=== PATIENT | male | born 1945 | race Caucasian/White ===

== ENCOUNTER 2017-09-14 18:54 | Observation (INO) | payer OTHER ==
--- NOTE | 2017-09-14 19:36 | EDPHY ---
H & P Time Seen by Provider: 09/14/17 19:33 HPI/ROS: CHIEF COMPLAINT: Hiccups, drowsiness HISTORY OF PRESENT ILLNESS: The patient is a 72 y/o male with a history of atrial fibrillation, complaining of hiccups for 8 days. 2 weeks ago he developed an inner ear infection and was prescribed Prednisone. The prednisone was increased when it was initially unsuccessful. After the increase in steroids, he developed the hiccuping episodes. He was prescribed Thorazine, Ativan and Gabapentin for the hiccups, but has been experiencing excessive drowsiness. Yesterday the hiccups occurred for 12 hours from 15:00-03:00am. Prior to arrival he was severely drowsy, which required his to arouse him. He also experienced urinary incontinence while sleeping. This evening, DONNA Burkett, the patient's PCP, advised him to come to the ED due to the excessive drowsiness. When the hiccup episodes occur he has difficulty breathing due to the hiccups, as they occur every other breath. While sleeping, the hiccups stop but immediately start when he wakes up. Took Ativan, Gabapentin, and Thorazine at 15:00. He also tried eating peanut butter to stop the hiccups, which seems to help. He is not currently hiccuping. Denies chest pain, abdominal pain, fever or other pertinent symptoms. REVIEW OF SYSTEMS: Aside from elements discussed in the HPI, a comprehensive 10-point review of systems was reviewed and is negative. Past Medical/Surgical History: Atrial fibrillation Social History: at bedside, lives in [place], retired Smoking Status: Former smoker Physical Exam: General Appearance: Alert, pleasant, no hiccups Eyes: Pupils equal and round, no conjunctival pallor or injection ENT, Mouth: Mucous membranes moist Neck: Normal inspection Respiratory: Lungs are clear to auscultation Cardiovascular: Regular rate and rhythm Gastrointestinal: Abdomen is soft and non-tender Neurological: A&O, nonfocal Skin: Warm and dry, no rash Extremities: Nontender, no pedal edema Psychiatric: Mood and affect normal Constitutional: Initial Vital Signs Temperature (C) 36.4 C 09/14/17 18:56 Heart Rate 71 09/14/17 18:56 Respiratory Rate 18 09/14/17 18:56 Blood Pressure 116/75 09/14/17 18:56 O2 Sat (%) 94 09/14/17 18:56 O2 Delivery Mode Room Air Allergies/Adverse Reactions: No Known Allergies Allergy (Verified 09/14/17 18:55) Home Medications: Medication Instructions Recorded Apixaban [Eliquis] 5 mg PO BID 09/14/17 Digoxin [Lanoxin 125 mcg (RX)] 125 mcg PO DAILY 09/14/17 Ezetimibe/Simvastatin [Vytorin 1 each PO DAILY 09/14/17 10-40 mg Tablet] Herbals/Supplements -Info Only 1 ea PO DAILY 09/14/17 Levothyroxine [Synthroid 137 mcg 137 mcg PO DAILY 09/14/17 (*)] Loratadine [Claritin] 10 mg PO DAILY 09/14/17 Nebivolol HCl [Bystolic] 2.5 mg PO DAILY 09/14/17 Testosterone 30 mg TD DAILY 09/14/17 Venlafaxine HCl [Venlafaxine 37.5 mg PO DAILY 09/14/17 37.5MG (*)] buPROPion [Wellbutrin 100mg (*)] 100 mg PO BID 09/14/17 guaiFENesin [Mucinex 600 MG (*)] 1,200 mg PO BID 09/14/17 Acetaminophen [Tylenol 325mg (*)] 650 mg PO Q4HRS PRN tab 09/16/17 Baclofen [Baclofen 10 mg (*)] 10 mg PO Q6H #30 tab 09/16/17 Benzocaine/Menthol 15/4 [Cepacol 1 ea PO PRN PRN lozenge 09/16/17 Lozenge] Gabapentin [Neurontin 300 MG (*)] 300 mg PO Q6H #120 cap 09/16/17 Ondansetron HCl Pf [Zofran 4 mg 4 mg IVP Q4HRS PRN vial 09/16/17 Inj (*)] Medical Decision Making ED Course/Re-evaluation: The patient is a 72 y/o male with a history of atrial fibrillation, presenting with excessive drowsiness after taking multiple sedative medications for relief of hiccups. He is not currently hiccuping. He is currently alert and physical exam is normal. 1952: Consulted with Nolan THOMPSON, regarding the patient's symptoms. He will admit the pt for observation. Dr. Tomlinson will be the admitting physician. Differential Diagnosis: Altered mental status including but not limited to hypoglycemia, infectious process, electrolyte abnormality, head injury and intoxicants. - Data Points Medications Given: Apixaban (Eliquis) 5 mg PO BID LYN Stop: 03/13/18 20:59 Last Admin: 09/16/17 09:26 Dose: 5 mg Atorvastatin Calcium (Lipitor) 20 mg PO DAILY LYN Stop: 03/14/18 08:59 Last Admin: 09/16/17 09:29 Dose: 20 mg Baclofen (Baclofen) 10 mg PO Q6H LYN Stop: 03/13/18 21:59 Last Admin: 09/16/17 09:26 Dose: 10 mg Benzonatate (Tessalon Pearles) 200 mg PO TID PRN PRN Reason: Cough, Mild Stop: 03/14/18 19:16 Last Admin: 09/16/17 05:01 Dose: 200 mg Bupropion HCl (Wellbutrin) 100 mg PO BID LYN Stop: 03/14/18 08:59 Last Admin: 09/16/17 09:27 Dose: 100 mg Cetirizine HCl (Zyrtec) 10 mg PO DAILY LYN Stop: 03/14/18 08:59 Last Admin: 09/16/17 09:25 Dose: 10 mg Digoxin (Lanoxin) 125 mcg PO DAILY LYN Stop: 03/14/18 08:59 Last Admin: 09/16/17 09:27 Dose: 125 mcg Ezetimibe (Zetia) 10 mg PO DAILY LYN Stop: 03/14/18 08:59 Last Admin: 09/16/17 09:26 Dose: 10 mg Gabapentin (Neurontin) 900 mg PO Q6H LYN Stop: 03/14/18 08:14 Last Admin: 09/16/17 09:25 Dose: 900 mg Guaifenesin (Mucinex) 1,200 mg PO BID LYN Stop: 03/14/18 08:59 Last Admin: 09/16/17 09:25 Dose: 1,200 mg Levothyroxine Sodium (Synthroid) 137 mcg PO DAILY LYN Stop: 03/14/18 08:59 Last Admin: 09/16/17 09:25 Dose: 137 mcg Miscellaneous Medication (Testosterone [Testosterone]) 30 mg TD DAILY LYN Stop: 03/14/18 08:59 Last Admin: 09/16/17 09:30 Dose: Not Given Nebivolol (Bystolic) 2.5 mg PO DAILY LYN Stop: 03/14/18 08:59 Last Admin: 09/16/17 09:26 Dose: 2.5 mg Pantoprazole Sodium (Protonix) 40 mg PO DAILY LYN Stop: 03/14/18 08:59 Last Admin: 09/16/17 09:28 Dose: 40 mg Sodium Chloride ([place]) 1 spray EACHNARE PRN PRN PRN Reason: Dry Nose Stop: 03/14/18 19:16 Last Admin: 09/15/17 20:25 Dose: 1 spray Throat Lozenges (Cepacol Lozenge) 1 ea PO PRN PRN PRN Reason: Sore Throat Stop: 03/14/18 19:16 Last Admin: 09/16/17 05:02 Dose: 1 ea Venlafaxine HCl (Venlafaxine Hcl) 37.5 mg PO DAILY LYN Stop: 03/14/18 08:59 Last Admin: 09/16/17 09:27 Dose: 37.5 mg Discontinued Medications Gabapentin (Neurontin) 300 mg PO Q6H LYN Stop: 03/13/18 21:59 Last Admin: 09/15/17 06:36 Dose: 300 mg Sodium Chloride (Ns) 1,000 mls @ 0 mls/hr IV EDNOW ONE; Wide Open PRN Reason: Protocol Stop: 09/14/17 19:54 Last Admin: 09/14/17 20:18 Dose: 1,000 mls Departure - Departure Disposition: [facility] Acute Clinical Impression: Hiccups Altered mental status Qualifiers: Altered mental status type: somnolence Qualified Code(s): R40.0 - Somnolence Condition: Fair Report Scribed for: Joann Dominguez Report Scribed by: Yeni Retana Date of Report: 09/14/17 Time of Report: 19:36
[2017-09-14] MEDS ORDERED: NS 1,000 ML IV ONE (19:53)
[2017-09-14] MEDS ORDERED: ONDANSETRON 4 MG/2 ML VIAL IVP PRN (20:17)
[2017-09-14] MEDS ORDERED: ACETAMINOPHEN 325 MG TAB PO PRN (20:17)
[2017-09-14] MEDS ORDERED: LORazepam 0.5 MG TAB PO PRN (20:17)
[2017-09-14] MEDS ORDERED: ONDANSETRON DISINTEGRATING 4 MG TAB PO PRN (20:17)
[2017-09-14] MEDS ORDERED: chlorproMAZINE HCL 25 MG TAB PO PRN (20:22)
--- NOTE | 2017-09-14 20:26 | SOAPPROG ---
SOAP Progress Note Assessment/Plan: Assessment: Plan: 09/14/17 20:25 intractable hiccups, admit, fluids, scheduled gabapentin and baclofen. Will prn low dose Thorazine and lorazepam a fib--rate controlled Eliquis Subjective: 72 yr old male with intractable hiccups. Unsafe to be managed at home. Meds too sedating and ambulation is quite precarious. He his much more alert in ER. Objective: Vital Signs Temp Pulse Resp BP Pulse Ox 36.4 C 71 18 116/75 94 09/14/17 18:56 09/14/17 18:56 09/14/17 18:56 09/14/17 18:56 09/14/17 18:56 Gen: NAD, pleasant, mildly tired Lungs: CTAB Heart: rate controlled irreg irreg Abd soft NT, ND no masses, decreased BS LE's no edema earlier in the day--very tired/sedated, difficulty with walking ICD10 Worksheet Patient Problems: Problems Problem Status Onset Altered mental status Acute Hiccups Acute
[2017-09-14 20:42] LABS: % IMMATURE GRANULYOCYTES 0.5 % (0.0-1.1); ABSOLUTE IMMATURE GRANULOCYTES 0.07 10^3/uL (0.00-0.10); ADD DIFF? NO; ADD MORPH? NO; ADD SCAN? NO; ATYPICAL LYMPHOCYTE FLAG 0 (0-99); FRAGMENT RBC FLAG 0 (0-99); HEMATOCRIT 43.2 % (40.0-51.0); HEMOGLOBIN 15.9 g/dL (13.7-17.5); LEFT SHIFT FLG 10 (0-99); LIPEMIA HEMOLYSIS FLAG 90 (0-99); MEAN CELL HEMOGLOBIN 36.9 pg (27.9-34.1); MEAN CELL HEMOGLOBIN CONCENTR. 36.8 g/dL (32.4-36.7); MEAN CELL VOLUME 100.2 fL (81.5-99.8); MEAN PLATELET VOLUME 9.1 fL (8.7-11.7); PLATELET CLUMPS FLAG 0 (0-99); PLATELET COUNT 163 10^3/uL (150-400); RED BLOOD CELL COUNT 4.31 10^6/uL (4.40-6.38); RED CELL DISTRIBUTION WIDTH 11.8 % (11.5-15.2)
[2017-09-14 20:43] LABS: ANION GAP 8 mEq/L (8-16); CALCIUM 8.1 mg/dL (8.5-10.4); CARBON DIOXIDE 23 mEq/l (22-31); CHLORIDE 95 mEq/L (97-110); CREATININE 0.9 mg/dL (0.7-1.3); GLOMERULAR FILTRATION RATE > 60; GLUCOSE 103 mg/dL (70-100); SODIUM 126 mEq/L (134-144)
--- NOTE | 2017-09-14 21:36 | GHP ---
[f rep st] HISTORY AND PHYSICAL DATE OF ADMISSION: 09/14/2017 REASON FOR ADMISSION: Intractable hiccups. HISTORY OF PRESENT ILLNESS: The patient is a 72-year-old male who has had intractable hiccups for several days. He initially was treated for an acute upper respiratory infection with sudden hearing loss with high-dose steroids and antibiotics. Through the course of treatment, he developed intractable hiccups. He has had multiple medications tried, including Thorazine, lorazepam , and gabapentin. He is quite sensitive to Thorazine and, in conjunction with lorazepam and gabapentin, he gets overly sedated and becomes difficult to manipulate him at home. He had a 12-hour stretch of solid cups from 3 am until roughly 3:30 today. His has had difficulty getting him to and from the restroom. He does have a good appetite and is thirsty but has difficulty with actually eating due to the hiccups. At times, breathing feels difficult, as he feels somewhat locked up in his upper esophagus. He denies abdominal pain, fever, chills, cough, or chest pain. He feels better now. His states his overall cognition/mentation has improved dramatically compared to around 3 p.m. this afternoon, where he was very difficult to arouse while on the couch. He has not yet had a dose of baclofen. His last dose of gabapentin was 900 mg at 2 :15 today. PAST MEDICAL HISTORY: Significant for depression, atrial fibrillation with rate control, hypertension, history of diverticulitis. ALLERGIES: No known drug allergies. CURRENT MEDICATION: Reconciliation is pending. He is on Eliquis twice daily. He has been taking gabapentin, low-dose Thorazine and lorazepam for symptomatic control of his hiccups. He has finished steroids and antibiotics for his sinusitis with hearing loss. SURGICAL HISTORY: Noncontributory. FAMILY HISTORY: No history of intractable hiccups. REVIEW OF SYSTEMS: GENERAL: No fever or chills. No headache. No visual change. Earlier he was sedated. He feels better now. He denies difficulty with speaking or swallowing. CARDIORESPIRATORY: He denies shortness of breath or cough. No chest pain. GASTROINTESTINAL: No gross GI symptoms. No change in bowel habits. GENITOURINARY: No current urinary deficits. INTEGUMENTARY: No skin rashes. PHYSICAL EXAM: VITAL SIGNS: Blood pressure 116/75, heart rate 71, respiratory rate 18, saturation 94% on room air, temperature 36.4. GENERAL: Pleasant, mildly tired male, resting comfortably in ER bed. Pupils are symmetric. He answers questions appropriately. HEENT: Oropharynx is somewhat dry. NECK: Without masses. Speaking quality is normal. LUNGS: Clear. Cough is dry. HEART: Irregularly irregular with good rate control. No murmur. ABDOMEN: Mildly reduced bowel sounds. Soft, nontender. No guarding, rebound or masses. SKIN: Warm, dry, intact. EXTREMITIES: No edema. LABORATORY DATA: Blood results are pending. ASSESSMENT: Intractable hiccups. Given significant sedation difficulty maintaining patient safely at home, he will be admitted for observation. Will place on IV fluids. Will continue scheduled gabapentin at 900 mg q.6 hours, baclofen 10 mg q.6 hours, p.r.n. doses of lorazepam at 0.5 mg, and low-dose Thorazine 6.25 mg q.6 hours p.r.n. breakthrough hiccups. If things seem to be stabilized, continue on gabapentin and baclofen, and anticipate gradual taper. If he remains asymptomatic with his hiccups, hopefully he will be able to be discharged tomorrow midday or afternoon, if things seem to be under control. /[id number]/MODL MTDD
[2017-09-14] MEDS: GABAPENTIN 300 MG CAP PO SCH (22:26)
[2017-09-14] MEDS: APIXABAN 5 MG TAB PO SCH (22:26)
[2017-09-14] MEDS: BACLOFEN 10 MG TAB PO SCH (22:26)
[2017-09-15] MEDS ORDERED: BACLOFEN 10 MG TAB PO SCH
[2017-09-15 04:02] LABS: % IMMATURE GRANULYOCYTES 0.6 % (0.0-1.1); ABSOLUTE IMMATURE GRANULOCYTES 0.06 10^3/uL (0.00-0.10); ADD DIFF? NO; ADD MORPH? NO; ADD SCAN? NO; ATYPICAL LYMPHOCYTE FLAG 0 (0-99); FRAGMENT RBC FLAG 0 (0-99); HEMATOCRIT 40.4 % (40.0-51.0); HEMOGLOBIN 14.4 g/dL (13.7-17.5); LEFT SHIFT FLG 10 (0-99); LIPEMIA HEMOLYSIS FLAG 90 (0-99); MEAN CELL HEMOGLOBIN 36.2 pg (27.9-34.1); MEAN CELL HEMOGLOBIN CONCENTR. 35.6 g/dL (32.4-36.7); MEAN CELL VOLUME 101.5 fL (81.5-99.8); MEAN PLATELET VOLUME 9.5 fL (8.7-11.7); PLATELET CLUMPS FLAG 0 (0-99); PLATELET COUNT 173 10^3/uL (150-400); RED BLOOD CELL COUNT 3.98 10^6/uL (4.40-6.38); RED CELL DISTRIBUTION WIDTH 11.9 % (11.5-15.2)
[2017-09-15 04:25] LABS: ALANINE AMINOTRANSFERASE 63 IU/L (21-72); ALBUMIN 2.8 g/dL (3.5-5.0); ALKALINE PHOSPHATASE 55 IU/L (38-126); AMYLASE < 30 IU/L (30-110); ANION GAP 5 mEq/L (8-16); ASPARTATE AMINOTRANSFERASE 29 IU/L (17-59); BILIRUBIN,TOTAL 1.3 mg/dL (0.1-1.4); CARBON DIOXIDE 28 mEq/l (22-31); CHLORIDE 95 mEq/L (97-110); GLOMERULAR FILTRATION RATE > 60; GLUCOSE 85 mg/dL (70-100); POTASSIUM 4.6 mEq/L (3.5-5.2); SODIUM 128 mEq/L (134-144); TOTAL PROTEIN 5.3 g/dL (6.3-8.2)
[2017-09-15] MEDS: GABAPENTIN 300 MG CAP PO SCH ×4 (06:36→20:26)
[2017-09-15] MEDS: BACLOFEN 10 MG TAB PO SCH ×4 (06:36→22:44)
[2017-09-15] MEDS ORDERED: LORazepam 0.5 MG TAB PO PRN (08:10)
[2017-09-15] MEDS ORDERED: chlorproMAZINE HCL 25 MG TAB PO PRN (08:10)
[2017-09-15] MEDS: NEBIVOLOL HCL 5 MG TAB PO SCH (08:44)
[2017-09-15] MEDS: PANTOPRAZOLE SODIUM 40 MG TAB PO SCH (08:44)
[2017-09-15] MEDS: APIXABAN 5 MG TAB PO SCH ×2 (08:44→20:26)
[2017-09-15] MEDS: LEVOTHYROXINE 137 MCG TAB PO SCH (08:44)
[2017-09-15] MEDS: CETIRIZINE 10 MG TAB PO SCH (08:44)
[2017-09-15] MEDS: DIGOXIN 125 MCG TAB PO SCH (08:45)
[2017-09-15] MEDS: guaiFENesin 600 MG TAB.ER PO SCH ×2 (08:45→20:26)
[2017-09-15] MEDS: TESTOSTERONE 30 MG TD SCH (08:49)
--- NOTE | 2017-09-15 08:58 | SOAPPROG ---
SOAP Progress Note Assessment/Plan: Assessment:Persistent hiccups, sore throat. Cough. Plan: throat lozenges. Tessalon pearles. Follow symptoms and labs. 09/15/17 19:15 Subjective: Slept 5 hours last night. Hiccups persist. CO mild sore throat and sinus drainage. Objective: Vital Signs Temp Pulse Resp BP Pulse Ox 98.4 F 90 16 152/105 H 93 09/15/17 07:51 09/15/17 07:51 09/15/17 07:51 09/15/17 07:51 09/15/17 07:51 Laboratory Results 09/15/17 03:18 09/15/17 03:18 09/14/17 09/15/17 09/16/17 05:59 05:59 05:59 Intake Total 1500 500 Balance 1500 500 Lungs clear to asc. CXR unimpressive. SInus x-rays demonstrate persistent chronic sinusitis. ICD10 Worksheet Patient Problems: Problems Problem Status Onset Altered mental status Acute Hiccups Acute
[2017-09-15] MEDS ORDERED: Herbals/Supplements -Info Only PO SCH (09:00)
[2017-09-15] MEDS ORDERED: NON-FORMULARY NEW DRUG (Nebivolol Hcl [Bystolic] 2.5 MG) PO SCH (09:00)
[2017-09-15] MEDS ORDERED: EZETIMIBE PO SCH (09:00)
[2017-09-15] MEDS ORDERED: NON-FORMULARY NEW DRUG (Loratadine [Claritin] 10 MG) PO SCH (09:00)
[2017-09-15] MEDS ORDERED: SIMVASTATIN PO SCH (09:00)
[2017-09-15] MEDS ORDERED: NON-FORMULARY NEW DRUG (Omeprazole [Omeprazole] 40 MG) PO SCH (09:00)
[2017-09-15] MEDS: EZETIMIBE 10 MG TAB PO SCH (09:03)
[2017-09-15] MEDS: ATORVASTATIN CALCIUM 20 MG TAB PO SCH (09:03)
[2017-09-15] MEDS: VENLAFAXINE HCL 37.5 MG TAB PO SCH (10:02)
[2017-09-15] MEDS: buPROPion 100 MG TAB PO SCH ×2 (10:02→20:26)
--- NOTE | 2017-09-15 16:02 | ASMTCMCOM ---
CM Note CM Note Notes: 09/15/2017 Case Management Note Met w/pt. There are no case management d/c needs identified. Pt is to [facility] [phone]. 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 There are no PT or OT evals ordered. Pt is able to drive and is indepedent in ADLs. Case Management d/c poc: Home independent when medically stable. Case Management available if needs change. Date Signed: 09/15/2017 04:02 PM Electronically Signed By:Tracey Hagen RN
[2017-09-15] MEDS ORDERED: SODIUM CL NASAL 45 ML BTL EACHNARE PRN (19:17)
[2017-09-15] MEDS: CEPACOL LOZENGE PO PRN (20:25)
[2017-09-15] MEDS: BENZONATATE 100 MG CAP PO PRN (20:26)
[2017-09-16] MEDS: GABAPENTIN 300 MG CAP PO SCH ×2 (02:26→09:25)
[2017-09-16] MEDS: BACLOFEN 10 MG TAB PO SCH ×2 (04:49→09:26)
[2017-09-16] MEDS: CEPACOL LOZENGE PO PRN ×2 (05:01→05:02)
[2017-09-16] MEDS: BENZONATATE 100 MG CAP PO PRN (05:01)
[2017-09-16] MEDS: CETIRIZINE 10 MG TAB PO SCH (09:25)
[2017-09-16] MEDS: guaiFENesin 600 MG TAB.ER PO SCH (09:25)
[2017-09-16] MEDS: LEVOTHYROXINE 137 MCG TAB PO SCH (09:25)
[2017-09-16] MEDS: NEBIVOLOL HCL 5 MG TAB PO SCH (09:26)
[2017-09-16] MEDS: APIXABAN 5 MG TAB PO SCH (09:26)
[2017-09-16] MEDS: EZETIMIBE 10 MG TAB PO SCH (09:26)
[2017-09-16] MEDS: buPROPion 100 MG TAB PO SCH (09:27)
[2017-09-16] MEDS: DIGOXIN 125 MCG TAB PO SCH (09:27)
[2017-09-16] MEDS: VENLAFAXINE HCL 37.5 MG TAB PO SCH (09:27)
[2017-09-16] MEDS: PANTOPRAZOLE SODIUM 40 MG TAB PO SCH (09:28)
[2017-09-16] MEDS: ATORVASTATIN CALCIUM 20 MG TAB PO SCH (09:29)
[2017-09-16] MEDS: TESTOSTERONE 30 MG TD SCH (09:30)
[2017-09-16 11:39] VITALS: BP 102/68; PULSE 71; RESP 18; TEMP 99.4; O2SAT 94
--- NOTE | 2017-09-16 18:22 | GDS ---
[f rep st] DISCHARGE SUMMARY ADMISSION DIAGNOSIS: Refractory hiccups. DISCHARGE DIAGNOSIS: Refractory hiccups. ADDITIONAL DIAGNOSIS: Acute neural hearing loss secondary to a viral infection mandating steroid the rapy. PROCEDURES: None. COMPLICATIONS: None. HOSPITAL COURSE: Patient was admitted with refractory hiccups. He has chronic sinus infection and h ad previously been scheduled for a balloon sinuplasty. This was canceled because of his refractory h iccups. He had continuing cough and nasal drainage. CT scan of the sinuses revealed persistent stage technician lazara sphenoid sinusitis on the left side. He also had a cough, which was nonproductive. Chest x-ray was unremarkable. Blood work, although initially showed an elevated white count and a low sodium, up on subsequent testing, this was normalizing. He gradually began feeling better. The hiccups resolve d after a routine dose of moderately high-dosed gabapentin, plus baclofen was started. He felt somew hat weak on this but not abnormal. He was alert, oriented, and appropriate. He is being discharged home on continued gabapentin and baclofen, as this has kept the hiccups gone for over 24 hours. MEDICATIONS AT TIME OF DISCHARGE: Baclofen 10 mg p.o. q.6 hours, #30 was provided; gabapentin 200 mg q.6 hours, #120 was provided. He is also taking Wellbutrin 100 p.o. b.i.d., venlafaxine 37.5 mg jessica ly, levothyroxine 137 mcg daily, Vytorin 10/40 one p.o. daily, Lanoxin 125 mcg daily, testosterone 30 mg transdermally daily, Eliquis 5 p.o. b.i.d., Bystolic 2.5 mg daily, Claritin 10 mg daily, plus mesha e additional nutraceuticals. He will follow up with me in the office in 1 week. /[id number]/MODL
== END 2017-09-16 14:45 | disposition home or self-care (01) ==
LOC: F2W 20:45
PROVIDERS: ADMIT Internal Medicine; ATTEND Internal Medicine
DX: R06.6 Hiccough (principal); H90.3 Sensorineural hearing loss, bilateral; B34.9 Viral infection, unspecified
CPT/HCPCS: 70486; 71020; G0378

== ENCOUNTER → 2018-08-13 | Outpatient (CLI) | payer OTHER | LOC: BHFA 14:00 | PROVIDERS: ATTEND Internal Medicine Cardiovascular Disease | DX: R55 Syncope and collapse (principal) ==